=== PATIENT | male | born 1955 | race Caucasian/White ===

== ENCOUNTER → 2018-06-20 | Outpatient (CLI) | payer MEDICARE ==
--- NOTE | 2018-06-20 12:44 | MR ---
EXAMINATION TYPE: MR lumbar spine wo con DATE OF EXAM: 06/20/2018 COMPARISON: None HISTORY: Intervertebral disc degeneration, chronic low back pain TECHNIQUE: Multiplanar, multisequence images of the lumbar spine were acquired. TECHNIQUE: There is straightening of usual lumbar lordosis. Multilevel disc desiccation is seen. The conus medullaris is slightly low-lying terminating at L3. There does not appear to be tethering of th e distal cauda equina. Bone marrow signal is within normal limits. There is mild grade 1 anterolisthe sis of L4 on L5 likely secondary to facet arthropathy. There is resultant disc uncovering. Remainder of the lumbar vertebral bodies maintain normal alignment. Vertebral body heights of the lumbar spine are maintained. There is a T2 hyperintense and T1 hypointense probable right renal cyst measuring newton roximately 2.5 cm. L1-L2: There is disc desiccation and mild facet arthropathy without spinal canal stenosis nor neural foraminal narrowing. L2-L3: There is a small broad-based disc bulge and facet arthropathy without spinal canal stenosis no r neural foraminal narrowing. L3-L4: There is a small broad-based disc bulge and facet arthropathy with minimal ligamentum flavum b uckling. No significant spinal canal stenosis or neural foraminal narrowing. L4-L5: There is a right paracentral annular tear and very small central disc herniation superimposed on a broad-based disc bulge that in combination with facet arthropathy creating mild to moderate bila teral neural foraminal narrowing. L5-S1: There is disc uncovering and a right paracentral annular tear. There is a broad-based disc bul ge and facet arthropathy contributing to moderate bilateral neural foraminal narrowing and abutment o f the exiting L5 nerve roots. IMPRESSION: 1. Very small central disc herniation at L5-S1 that in combination with a broad-based disc bulge and facet arthropathy creates mild to moderate bilateral neural foraminal narrowing abutting without impr essing upon the exiting L4 nerve roots. 2. Grade 1 anterolisthesis of L5 on S1 and broad-based disc bulge that create moderate bilateral neur al foraminal narrowing also abutting the exiting L5 nerve roots bilaterally. 3. Minimal degenerative disc disease of the upper lumbar spine without spinal canal stenosis nor neur al foraminal narrowing. 4. Probable right renal cyst measuring approximately 2.5 cm. 5. Straightening of the usual lumbar lordosis that may relate to patient positioning, muscular sprain , or muscular spasm.
== END | disposition home or self-care (01) ==
LOC: MERGE 08:45 → RADMRIMAIN 08:52
PROVIDERS: ATTEND Family Medicine
DX: M48.07 Spinal stenosis, lumbosacral region (principal); M51.27 Other intervertebral disc displacement, lumbosacral region; M43.17 Spondylolisthesis, lumbosacral region; M51.36 Other intervertebral disc degeneration, lumbar region; M46.97 Unspecified inflammatory spondylopathy, lumbosacral region
CPT/HCPCS: 72148

== ENCOUNTER → 2023-03-02 | Outpatient (CLI) | payer MEDICARE ==
--- NOTE | 2023-03-02 15:24 | XR ---
EXAMINATION TYPE: XR lumbar spine with bend/flex DATE OF EXAM: 03/02/2023 COMPARISON: None HISTORY: Radiculopathy TECHNIQUE: 5 view lumbar spine including flexion and extension upright views. FINDINGS: There are 5 lumbar-type vertebral bodies. Pedicles are intact. There is a grade 1 spondylol isthesis of L5 anteriorly on S1. Disc space narrowing is present L5-S1. Remaining disc heights are pr eserved. Vertebral body heights are preserved. Vertebral body alignment appears preserved through fle xion neutral and extension views. IMPRESSION: 1. Grade 1 spondylolisthesis of L5 anteriorly on S1. 2. Vertebral body alignment is preserved through flexion and extension views
--- NOTE | 2023-03-04 21:26 | MR ---
EXAMINATION TYPE: MR lumbar spine wo con DATE OF EXAM: 03/02/2023 COMPARISON: 06/20/2018 HISTORY: Lumbosacral radiculopathy right leg pain CONTRAST: 0 mL intravenous Gadavist. TECHNIQUE: Multiplanar, multisequence images of the lumbar spine were acquired. FINDINGS: L5-S1: There is narrowing of the disc height. Some inferior L5 degenerative endplate changes are pres ent, this is changing from the 2019 exam. Disc desiccation is present. Mild subligamentous disc herni ation posterior to the L5 vertebral level is present. Facet hypertrophy is present with left lateral thecal sac compression. This is increasing from comparison Severe bilateral foraminal stenosis is pre sent. Some exiting nerve root compression may be present. Clinical correlation is recommended L4-L5: Disc desiccation is present. Disc height is preserved. No facet hypertrophy is present. Mild f oraminal narrowing is present. In the sagittal plane a small amount of signal is within the central p osterior disc suggesting small annular tear, present previously. L3-L4: No significant disc bulge or disc herniation. No spinal canal stenosis. No foraminal stenosi s. L2-L3: No significant disc bulge or disc herniation. No spinal canal stenosis. No foraminal stenosi s. L1-L2: No significant disc bulge or disc herniation. No spinal canal stenosis. No foraminal stenosi s. T12-L1: No significant disc bulge or disc herniation. No spinal canal stenosis. No foraminal stenos is. IMPRESSION: 1. Severe bilateral foraminal stenosis L5-S1. There is some endplate change at the inferior endplate of S1 no spinal canal stenosis is present. There is some increasing facet hypertrophy on the left wit h left posterior lateral thecal sac compression at L5-S1.
== END | disposition home or self-care (01) ==
LOC: RADMRIMAIN 12:38
PROVIDERS: ATTEND Orthopaedic Surgery
DX: M43.17 Spondylolisthesis, lumbosacral region (principal); M47.27 Other spondylosis with radiculopathy, lumbosacral region; M99.73 Connective tissue and disc stenosis of intervertebral foramina of lumbar region
CPT/HCPCS: 72114; 72148

== ENCOUNTER → 2023-04-23 | Outpatient (CLI) | payer MEDICARE ==
[~2023-04-23] MED LIST: REGADENOSON 0.4 MG/5 ML SYRINGE IV PRN
--- NOTE | 2023-04-23 12:19 | CA ---
Lexiscan Nuclear Stress Test Report Name: Azeem Lainez Exam Date: 04/23/2023 10:00 Exam Location: [facility] Ht (in): 67 Wt (lb): 126 BSA: 1.66 Ordering Phys: Greg Montano DO Referring Phys: DUANE Technologist: Jordan Diaz Age: 67 Gender: M : 1955 Procedure CPT: Indications: R42 DIZZINESS E78.2 HYPERLIPID R07.89 CHEST PAIN ICD-10 Codes: Patient History: Medications: LISINOPRIL,,,, ASA 81 mg,,,, AMLODIPINE,,,, ATORVASTATIN,,,, JARDIANCE,,,, CELECOXIB,,, Meds past 24 hrs: Pretest Chest Pain: STRESS TEST Lexiscan Protocol Exercise Duration (min:sec): 01:[address] Depressions (mm): Angina Score: Jaeger Score: Resting HR (bpm): 91 Peak HR (bpm): 112 Resting BP (mmHg): 141 / 75 Peak BP (mmHg): 146 / 72 MPHR: 151 Target HR: 128 % MPHR: 74 METS: 1.0 Total Dose: Peak Dose: Atropine: Double Product: 32349 BP Response: Stress Termination: INFUSION COMPLETE Stress Symptoms: NO SYMPTOMS Stress Summary: ECG ANALYSIS Resting ECG: Normal sinus rhythm, normal axis, Stress ECG: No significant ST-T wave changes diagnostic for ischemia by ST segment analysis CONCLUSIONS Normal hemodynamic and clinical response to Lexiscan infusion Nonischemic ECG response to Lexiscan infusion Overall normal ECG portion of the stress test Please refer to the nuclear imaging portion of the stress test for complete interpretation of this study Dr Paulino Zarco (Electronically Signed) Final Date: 23 April 2023 12:19
--- NOTE | 2023-04-23 15:03 | US ---
EXAMINATION TYPE: US carotid duplex BILAT DATE OF EXAM: 04/23/2023 COMPARISON: NONE CLINICAL INDICATION: Male, 67 years old with history of R42 DIZZINESS AND GIDDINESS E78.2 HYPERLIPIDE DONELL; Pt states dizziness TECHNIQUE: Carotid duplex ultrasound examination. Indirect Doppler criteria was utilized. FINDINGS: EXAM MEASUREMENTS: RIGHT: Peak Systolic Velocity (PSV) cm/sec ----- Right CCA: 69.4 ----- Right ICA: 103.0 ----- Right ECA: 97.8 ICA/CCA ratio: 1.5 RIGHT: End Diastole cm/sec ----- Right CCA: 16.2 ----- Right ICA: 35.7 ----- Right ECA: 0.0 LEFT: Peak Systolic Velocity (PSV) cm/sec ----- Left CCA: 77.3 ----- Left ICA: 114.7 ----- Left ECA: 96.3 ICA/CCA ratio: 1.5 LEFT: End Diastole cm/sec ----- Left CCA: 17.1 ----- Left ICA: 38.3 ----- Left ECA: 0.0 VERTEBRALS (direction of flow): Right Vertebral: Antegrade Left Vertebral: Antegrade Rhythm: Normal CHERRY SORTER NOTES: No significant stenosis seen IMPRESSION: No hemodynamically significant internal carotid artery stenosis on either side. Criteria for Assigning % of Stenosis / Diameter reduction (Estimation based on the indirect measurements of the internal carotid artery velocities (ICA PSV). 1. Normal (no stenosis)=ICA PSV < 125 cm/s: ratio < 2.0: ICA EDV<40 cm/s. 2. Less than 50% stenosis=ICA PSV < 125 cm/s: ratio < 2.0: ICA EDV<40 cm/s. 3. 50 to 69% stenosis=ICA PSV of 125 to 230 cm/s: ration 2.0 ? 4.0: ICA EDV 40-100 cm/s. 4. Greater than 70% stenosis to near occlusion= ICA PSV > 230 cm/s: ratio > 4.0: ICA EDV > 100 cm/s. 5. Near occlusion= ICA PSV velocities may be low or undetectable: variable ratio and ICA EDV. 6. Total occlusion=unable to detect flow.
--- NOTE | 2023-04-23 15:06 | NM ---
EXAMINATION TYPE: NM stress lexiscan cardiolite DATE OF EXAM: 04/23/2023 COMPARISON: NONE CLINICAL INDICATION: Male, 67 years old with history of R42 DIZZINESS E78.[address] PAIN; TECHNIQUE: After the intravenous administration of 25.2 mCi Tc 99m Sestamibi - Cardiolite resting SP ECT images acquired 70 minutes post injection. The patient received 0.4mg Lexiscan, 10.18 mCi Tc 99m Sestamibi - Stress images obtained 30 minutes p ost injection FINDINGS: Review of stress and rest SPECT images demonstrates decreased perfusion along the inferior wall but n o discrete reversibility. Gated analysis shows normal wall motion with an estimated left ventricular ejection fraction of 67 %. TID is calculated at 0.85. IMPRESSION: Fixed perfusion defect along the inferior wall could represent an area of old infarct versus diaphrag matic attenuation artifact. The latter is favored. Clinically correlate. No scintigraphic evidence f or reversible ischemia.
== END | disposition home or self-care (01) ==
LOC: RADNMMAIN 08:06
PROVIDERS: ATTEND Family Medicine
DX: R07.89 Other chest pain (principal); R42 Dizziness and giddiness; E78.2 Mixed hyperlipidemia
CPT/HCPCS: 93017; 93880; 78452; A9500; J2785